=== PATIENT | female | born 1935 | race Caucasian/White ===

== ENCOUNTER 2017-12-02 19:01 | Emergency (ER) | payer MEDICARE, OTHER ==
--- NOTE | 2017-12-02 19:35 | ED Physician Chart ---
ED Chief Complaint/HPI - Patient Information Date Seen:: 12/02/17 Time Seen:: 19:15 Chief Complaint:: generalized weakness History of Present Illness:: Patient has been in [facility] for the last 2 years. He is had generalized weakness and anorexia for last 2-3 days. 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 Patient has had cough for the last 1-1/2 weeks. Allergies:: Allergies Allergy/AdvReac Type Severity Reaction Status Date / Time adhesive tape Allergy Verified 04/19/17 19:23 amikacin Allergy Verified 04/19/17 19:22 latex Allergy Verified 04/19/17 19:23 Penicillins Allergy Verified 04/19/17 19:22 strawberry Allergy Verified 04/19/17 19:23 Sulfa (Sulfonamide Allergy Verified 04/19/17 19:22 Antibiotics) Historian:: Family Member Review:: Nurse's Note Reviewed, Transfer documents Reviewed ED Review of Systems - Review of Systems General/Constitutional: Fever Skin: No skin lesions Head: No headache Eyes: Acuity change ENT: No earache Neck: No neck pain Cardio Vascular: No chest pain, No palpitations Pulmonary: No SOB GI: No nausea, No vomiting, No diarrhea, No hematochezia G/U: No dysuria, No nacturia Musculoskeletal: No bone or joint pain Endocrine: No polyuria Psychiatric: Prior psych history Hematopoietic: No bruising Allergic/Immuno: No urticaria Neurological: No syncope ED Past Medical History - Past Medical History Past Medical History: PUD/GERD, Other (left femoral DVT; stage II sacral decubitus; chronic renal disease; cirrhosis; anxiety) Surgical History: other (right hip and left knee) Psychiatricy History: Dementia Medication: Reviewed Family Medical History - Family Member Mother History Unknown: Yes ED Physical Exam - Physical Examination General/Constitutional: Well-developed, well-nourished Other Gen/Cons comments:: Lethargic; appears to be sleeping; nonverbal Head: Atraumatic Eyes: Lids, conjuctiva normal, PERRL Skin: Nl inspection, No rash, No skin lesions, No ecchymosis ENMT: External ears, nose nl Other ENMT comments:: Edentulous Neck: No nuchal rigidity Respiratory: Nl effort/Exclusion, Clear to Auscultation Cardio Vascular: RRR, No murmur, gallop, rubs GI: No tenderness/rebounding/guarding, No organomegaly Neuro/Psych: No focal deficits ED Labs/Radiology/EKG Results - Lab Results Results: Laboratory Results - last 24 hr 12/02/17 12/02/17 20:08 20:08 WBC 5.4 D RBC 4.10 Hgb 11.4 L Hct 34.6 L MCV 84.3 MCH 27.7 MCHC Differential 32.9 RDW 15.5 Plt Count 179 MPV 9.5 Neutrophils % 72.1 Lymphocytes % 13.2 L Monocytes % 10.2 H Eosinophils % 4.4 Basophils % 0.1 Sodium 144 Potassium 4.5 Chloride 118 H Carbon Dioxide 13.6 L Anion Gap 16.9 H BUN 93 H* Creatinine 3.4 H Est GFR ( Amer) TNP Est GFR (Non-Af Amer) TNP BUN/Creatinine Ratio 27.4 Glucose 117 H Calcium 9.0 - Radiology Results Comments:: Chest x-ray showed cardiomegaly and calcification of aortic arch ED Assessment - Assessment General Assessment: I talked to Dr. Guerrero. [facility] returned to [facility] he will treat her. Patient to be given 1 L normal saline bolus before discharge ED Septic Shock - . Is Septic Shock (SBP<90, OR Lactate>4 mmol\L) present?: No ED Reassessment (Disposition) - Diagnosis Diagnosis:: Dehydration; dementia - Aftercare/Follow up Instructions Aftercare/Follow-Up Instructions:: Refer to Discharge Instructions - Patient Disposition Discharge/Transfer:: Care Home Care - SNF Spoke to:: Adonay Guerrero Condition at Disposition:: Stable, Improved
[2017-12-02 20:17] LABS: % BASOPHILS 0.1 % (0.0-2.0); HEMOGLOBIN 11.4 gm/dL (12-16); LYMPHOCYTE ABSOLUTE 0.7 Th/cmm (1.5-3.0); MEAN CELL VOLUME 84.3 fl (81-100); MEAN CORPUSCULAR HGB CONC 32.9 pg (28.0-36.0); MONOCYTE ABSOLUTE 0.6 Th/cmm (0.3-1.0)
[2017-12-02 20:19] LABS: % EOSINOPHILS 4.4 % (0.0-5.0); % LYMPHOCYTES 13.2 % (20.0-50.0); % MONOCYTES 10.2 % (2.0-10.0); % NEUTROPHILS 72.1 % (40.0-80.0); EOSINOPHILE ABSOLUTE 0.2 Th/cmm (0.1-0.4); HEMATOCRIT 34.6 % (41.0-60); MEAN CORPUSCULAR HEMOGLOBIN 27.7 pg (27.0-31.0); MEAN PLATELET VOLUME 9.5 fl; NEUTROPHILE ABSOLUTE 3.9 Th/cmm (1.8-8.0); PLATELET COUNT 179 Th/cmm (150-400); RED CELL DISTRIBUTION WIDTH 15.5 % (11.5-20.0)
[2017-12-02 20:21] LABS: WHITE BLOOD COUNT 5.4 Th/cmm (4.8-10.8)
[2017-12-02 20:31] LABS: ANION GAP 16.9 (7.0-16.0); CARBON DIOXIDE 13.6 mEq/L (21.0-31.0); CHLORIDE 118 mEq/L (98-107); CREATININE - SERUM 3.4 mg/dL (0.6-1.2); GLUCOSE 117 mg/dL (70-105); POTASSIUM SERUM 4.5 mEq/L (3.5-5.1); SODIUM SERUM 144 mEq/L (136-145)
[2017-12-02 20:59] LABS: BUN - UREA NITROGEN 93 mg/dL (7-25)
[2017-12-02] MEDS ORDERED: Sodium Chloride 0.9% 1,000 ML IV ONE (21:31)
--- NOTE | 2017-12-03 08:01 | Diagnostic Imaging Report ---
CHEST X-RAY: AP view INDICATION: Pneumonia COMPARISON: None FINDINGS: Suboptimal lung volume are seen. Chronic lung changes are seen with no focal consolidation or effusions. Heart size at the upper limits of normal. Atherosclerosis is noted. Degenerative changes of the spine are noted. IMPRESSION: Suboptimal lung along the chronic changes. No focal consolidation identified. Atherosclerotic vascular disease.
== END 2017-12-03 | disposition short-term general hospital (02) ==
LOC: ER 19:01
DX: E86.0 Dehydration (principal); F03.90 Unspecified dementia, unspecified severity, without behavioral disturbance, psychotic disturbance, mood disturbance, and anxiety; K21.9 Gastro-esophageal reflux disease without esophagitis; Z87.11 Personal history of peptic ulcer disease
CPT/HCPCS: 36415-UA; 71010-TC; 80048-TC; 85025-TC; 93005; J7030